=== PATIENT | male | born 1950 | race African-American/Black ===

== ENCOUNTER 2017-10-22 13:53 | Observation (INO) | payer MEDICARE ==
[~2017-10-22] VITALS: Ht 185.4 cm; Wt 103.0 kg
[2017-10-22] VITALS: BP 107/58
[2017-10-22] MEDS ORDERED: SODIUM CHLORIDE 0.9% 1,000 ML IV ONE ×4 (15:04→18:12)
[2017-10-22] MEDS ORDERED: INSULIN REGULAR (HUMULIN R) 300UNITS/3ML SUBCUT ONE (15:15)
[2017-10-22 16:02] LABS: BASOPHILS % 0.6 % (0.0-2.0); EOSINOPHILS % 0.2 % (0.0-5.0); HEMATOCRIT. 49.2 % (42.0-52.0); HEMOGLOBIN. 15.5 g/dL (14.0-18.0); LYMPHOCYTES % 20.7 % (20.0-50.0); MEAN CORPUSCULAR HEMOGLOBIN 28.9 pg (28.0-32.0); MEAN PLATELET VOLUME 10.5 fl (7.4-10.4); MONOCYTES % 6.3 % (2.0-8.0); NEUTROPHILS % 72.2 % (40.0-76.0); PLATELET 184 x1000/uL (130-400); RED BLOOD CELL COUNT 5.34 mill/uL (4.7-6.1); RED CELL DISTRIBUTION WIDTH 14.4 % (11.6-14.6)
[2017-10-22 16:06] LABS: PROTHROMBIN TIME 10.8 sec (9.4-11.6)
[2017-10-22 16:28] LABS: CARBON DIOXIDE 22 mEq/L (21-32); TROPONIN I 0.02 ng/mL (0.00-0.04)
[2017-10-22 16:33] LABS: BETA HYDROXYBUTYRATE 0.3 mMol/L (0.0-0.3)
[2017-10-22 16:47] LABS: CLARITY URINE CLEAR (CLEAR); COLOR URINE YELLOW (YELLOW); KETONES URINE NEGATIVE (NEGATIVE); LEUKOCYTE ESTERASE URINE NEGATIVE (NEGATIVE); NITRITE URINE NEGATIVE (NEGATIVE); OCCULT BLOOD URINE NEGATIVE (NEGATIVE); PROTEIN URINE NEGATIVE (NEGATIVE); UROBILINOGEN URINE 0.2 E.U./dL (0.2-1.0)
[2017-10-22 16:56] LABS: CHLORIDE 107 mEq/L (98-107)
[2017-10-22] MEDS ORDERED: INSULIN REGULAR (HUMULIN R) UD 100 UNITS/ML SYR IV ONE ×2 (17:00→18:15)
[2017-10-22 17:01] LABS: *AMPHETAMINES SCREEN URINE NEGATIVE (NEGATIVE); *BARBITURATES SCREEN URINE NEGATIVE (NEGATIVE); *BENZODIAZEPINES SCREEN URINE NEGATIVE (NEGATIVE); *COCAINE SCREEN URINE NEGATIVE (NEGATIVE); CANNABINOID URINE SCREEN NEGATIVE (NEGATIVE); METHADONE URINE SCREEN NEGATIVE (NEGATIVE); OPIATES URINE SCREEN NEGATIVE (NEGATIVE); PHENCYCLIDINE URINE SCREEN NEGATIVE (NEGATIVE)
[2017-10-22] MEDS ORDERED: INSULIN REGULAR (HUMULIN R) 300UNITS/3ML IV NR (18:36)
[2017-10-22 21:45] VITALS: BP 132/88
[2017-10-22] MEDS ORDERED: LANTUSUD SUBCUT (21:59)
[2017-10-22 22:00] VITALS: BP 132/88
[2017-10-23] MEDS ORDERED: ACETAMINOPHEN 325MG TABLET PO PRN (00:15)
[2017-10-23] MEDS ORDERED: LEVOFLOXACIN 500MG TABLET PO SCH ×2 (00:15→00:45)
[2017-10-23] MEDS ORDERED: ONDANSETRON HCL 4MG/2ML VIAL IV PRN (00:15)
[2017-10-23] MEDS ORDERED: DOCUSATE SODIUM 100MG CAPSULE PO PRN (00:15)
[2017-10-23] MEDS ORDERED: DEXTROSE 50% WATER 50ML SYRINGE IV PRN (00:30)
[2017-10-23] MEDS: SODIUM CHLORIDE 0.45% 1,000 ML IV SCH ×2 (00:32→13:58)
[2017-10-23 04:00] VITALS: BP 118/74
[2017-10-23] MEDS: BLOOD SUGAR DIAGNOSTIC STRIP TEST SCH ×3 (05:49→17:39)
[2017-10-23] MEDS: INSULIN LISPRO 100 UNITS/ML SUBCUT SCH ×3 (05:52→18:01)
[2017-10-23 06:21] LABS: BASOPHILS % 0.3 % (0.0-2.0); EOSINOPHILS % 0.9 % (0.0-5.0); HEMATOCRIT. 38.9 % (42.0-52.0); HEMOGLOBIN. 12.6 g/dL (14.0-18.0); MEAN CORPUSCULAR HEMOGLOBIN 29.2 pg (28.0-32.0); MEAN CORPUSCULAR VOLUME 90.2 fL (80.0-94.0); MONOCYTES % 9.3 % (2.0-8.0); NEUTROPHILS % 48.5 % (40.0-76.0); PLATELET 142 x1000/uL (130-400); RED BLOOD CELL COUNT 4.32 mill/uL (4.7-6.1)
[2017-10-23 07:43] LABS: CLARITY URINE CLEAR (CLEAR); COLOR URINE YELLOW (YELLOW); KETONES URINE NEGATIVE (NEGATIVE); LEUKOCYTE ESTERASE URINE NEGATIVE (NEGATIVE); NITRITE URINE NEGATIVE (NEGATIVE); OCCULT BLOOD URINE NEGATIVE (NEGATIVE); PROTEIN URINE TRACE (NEGATIVE); SPECIFIC GRAVITY URINE 1.023 (1.005-1.030); UROBILINOGEN URINE 0.2 E.U./dL (0.2-1.0)
[2017-10-23 08:45] VITALS: BP 130/84
[2017-10-23] MEDS ORDERED: ENOXAPARIN 40MG/0.4ML SYR SUBCUT SCH (09:00)
[2017-10-23] MEDS ORDERED: INSULIN GLARGINE UD 100 UNITS/ML SYR SUBCUT SCH (10:00)
[2017-10-23 10:57] LABS: CARBON DIOXIDE 22 mEq/L (21-32); CHLORIDE 120 mEq/L (98-107); HDL CHOLESTEROL 38 mg/dL (40-59); LDL CHOLESTEROL 43 mg/dL (5-100); T4 FREE 1.13 ng/dL (0.76-1.46); TROPONIN I 0.03 ng/mL (0.00-0.04)
[2017-10-23 12:46] VITALS: BP 139/86
[2017-10-23 16:15] VITALS: BP 136/90
[2017-10-23 18:33] LABS: HEPATITIS B CORE AB IGM NEGATIVE
[2017-10-23 18:34] LABS: HEPATITIS A AB IGM NEGATIVE (NEGATIVE)
[2017-10-23 19:24] LABS: HEPATITIS B SURFACE ANTIGEN NEGATIVE
[2017-10-23 19:53] VITALS: BP 112/69
[2017-10-23 20:00] VITALS: BP 112/69
[2017-10-23] MEDS ORDERED: LEVOFLOXACIN 250MG TABLET PO SCH (21:00)
== END 2017-10-23 20:50 | disposition home or self-care (01) ==
LOC: ER 16:18 → INTOOBSV 17:06 → 5WST 17:06 → ENRESERV 20:12
PROVIDERS: ADMIT Internal Medicine; ATTEND Internal Medicine
DX: E11.65 Type 2 diabetes mellitus with hyperglycemia (principal); I10 Essential (primary) hypertension; E86.0 Dehydration; R94.5 Abnormal results of liver function studies; R53.1 Weakness; R06.02 Shortness of breath; Z79.899 Other long term (current) drug therapy
CPT/HCPCS: 36415; 74176; 80053; 80061; 80305; 81001; 82010; 82962; 83880; 84439; 84443; 84484; 85025; 85610; 87086; 96361; 96372; 96374; 99285; G0378; J1650; J1815; J7030; 86705; 86709; 86803; 87340

== ENCOUNTER 2019-06-06 06:00 | Emergency (ER) | payer MEDICARE, OTHER ==
[~2019-06-06] VITALS: Ht 182.9 cm; Wt 114.0 kg
[2019-06-06] MEDS ORDERED: ONDANSETRON HCL 4MG/2ML INJ IV STA (06:20)
[2019-06-06] MEDS ORDERED: SODIUM CHLORIDE 0.9% 1,000 ML IV ONE (06:20)
[2019-06-06 07:20] LABS: BASOPHILS % 0.6 % (0.0-2.0); EOSINOPHILS % 0.5 % (0.0-5.0); HEMATOCRIT. 40.2 % (42.0-52.0); HEMOGLOBIN. 13.3 g/dL (14.0-18.0); LYMPHOCYTES % 18.5 % (20.0-50.0); MEAN CORPUSCULAR HEMOGLOBIN 29.1 pg (28.0-32.0); MEAN CORPUSCULAR VOLUME 87.8 fL (80.0-94.0); MONOCYTES % 6.5 % (2.0-8.0); NEUTROPHILS % 73.9 % (40.0-76.0); PLATELET 193 x1000/uL (130-400); RED BLOOD CELL COUNT 4.58 mill/uL (4.7-6.1); RED CELL DISTRIBUTION WIDTH 15.1 % (11.6-14.6)
[2019-06-06 07:27] LABS: CHLORIDE 112 mEq/L (98-107)
[2019-06-06 07:30] LABS: ETHANOL BLOOD < 10 mg/dL
[2019-06-06 09:00] VITALS: BP 135/74
== END 2019-06-06 09:04 | disposition home or self-care (01) ==
LOC: ER 06:22
DX: K52.9 Noninfective gastroenteritis and colitis, unspecified (principal); R11.2 Nausea with vomiting, unspecified; E11.9 Type 2 diabetes mellitus without complications; I10 Essential (primary) hypertension
CPT/HCPCS: 36415; 71045; 74176; 80053; 80320; 83605; 83690; 83880; 84484; 85025; 87040; 93005; 96361; 96374; 99284; J2405; J7030; G0480

== ENCOUNTER 2020-09-07 06:39 | Inpatient (IN) | payer OTHER ==
[~2020-09-07] VITALS: Ht 188 cm; Wt 99.8 kg
[2020-09-07] MEDS ORDERED: VANCOMYCIN 1 G PREMIX 200 ML IV ONE (07:15)
[2020-09-07] MEDS ORDERED: PIPERACILLIN/TAZ 3.375G PREMIX 50 ML IV ONE (07:15)
[2020-09-07 08:26] LABS: BASOPHILS % 0.2 % (0.0-2.0); EOSINOPHILS % 0.3 % (0.0-5.0); HEMATOCRIT. 46.4 % (42.0-52.0); HEMOGLOBIN. 14.6 g/dL (14.0-18.0); LYMPHOCYTES % 8.6 % (20.0-50.0); MEAN CORPUSCULAR HEMOGLOBIN 28.9 pg (28.0-32.0); MEAN CORPUSCULAR VOLUME 91.9 fL (80.0-94.0); MONOCYTES % 4.3 % (2.0-8.0); NEUTROPHILS % 86.6 % (40.0-76.0); PLATELET 177 x1000/uL (130-400); RED BLOOD CELL COUNT 5.05 mill/uL (4.7-6.1); RED CELL DISTRIBUTION WIDTH 14.4 % (11.6-14.6)
[2020-09-07 08:28] LABS: CHLORIDE 95 mEq/L (98-107)
[2020-09-07 09:12] LABS: INR 1.1; PROTHROMBIN TIME 11.2 sec (9.6-11.0)
[2020-09-07 10:10] LABS: BG BASE EXCESS -8.7 mmol/L (-2.0-2.0); BG CARBOXYHEMOGLOBIN 0.2 % (0.5-1.5); BG DEOXYHEMOGLOBIN 4.6 % (0.0-5.0); BG FRACTION INSPIRED OXYGEN 32; BG HCO3 ACT 16.1 mmol/L (22.0-26.0); BG METHEMOGLOBIN 0.5 % (0.0-1.5); BG OXYGEN SATURATION 95.4 % (92.0-98.5); BG OXYHEMOGLOBIN 94.7 % (94.0-97.0); BG PCO2 31.8 mmHg (35.0-45.0); BG PH 7.322 (7.350-7.450); BG PO2 87.5 mmHg (75.0-100.0); BG SAMPLE SITE RIGHT BRACHIAL; BG TOTAL HEMOGLOBIN 14.4 g/dL (12.0-18.0); BG VENT MODE NASAL CANNULA
[2020-09-07 10:44] LABS: CLARITY URINE CLOUDY (CLEAR); COLOR URINE YELLOW (YELLOW); KETONES URINE NEGATIVE (NEGATIVE); LEUKOCYTE ESTERASE URINE NEGATIVE (NEGATIVE); NITRITE URINE NEGATIVE (NEGATIVE); OCCULT BLOOD URINE 2+ (NEGATIVE); PROTEIN URINE 1+ (NEGATIVE); SPECIFIC GRAVITY URINE 1.026 (1.005-1.030); UROBILINOGEN URINE 0.2 E.U./dL (0.2-1.0)
[2020-09-07] MEDS ORDERED: INSULIN REGULAR (HUMULIN R) 300UNITS/3ML VIAL IV ONE (11:30)
[2020-09-07] MEDS ORDERED: CALCIUM GLUCONATE 1GM PREMIX 50 ML IV ONE (11:30)
[2020-09-07] MEDS ORDERED: SODIUM CHLORIDE 0.9% 1,000 ML IV ONE ×2 (11:30→15:30)
[2020-09-07] MEDS ORDERED: INSULIN REGULAR (DRIP) 100 UNITS in SODIUM CHLORIDE 0.9% 99 ML IV ONE ×2 (11:45→12:00)
[2020-09-07] MEDS ORDERED: DIPHENHYDRAMINE 50MG/ML VIAL IV PRN (14:30)
[2020-09-07] MEDS ORDERED: ACETAMINOPHEN 650MG SUPP PR PRN (14:30)
[2020-09-07] MEDS ORDERED: ONDANSETRON HCL 4MG/2ML INJ IV PRN (14:30)
[2020-09-07] MEDS ORDERED: NA PHOS,M-B/NA PHOS,DI-BA ENEMA 118ML PR PRN (14:30)
[2020-09-07] MEDS ORDERED: INSULIN REGULAR (DRIP) 100 UNITS in SODIUM CHLORIDE 0.9% 99 ML IV PRN (14:30)
[2020-09-07] MEDS ORDERED: IPRATROPIUM/ALBUTEROL 0.5-3(2.5)MG/3ML NEB NEB PRN (14:30)
[2020-09-07] MEDS ORDERED: MORPHINE SULFATE 2 MG/ML CPJ (NOT FOR IM USE) IV PRN (14:30)
[2020-09-07] MEDS ORDERED: GUAIFENESIN 200MG/10ML SUGAR FREE UDC PO PRN (14:30)
[2020-09-07] MEDS ORDERED: LORAZEPAM 0.5MG TABLET PO PRN (14:30)
[2020-09-07] MEDS ORDERED: CLONIDINE 0.1MG TABLET PO PRN (14:30)
[2020-09-07] MEDS ORDERED: DEXTROSE 50% WATER 50ML SYRINGE IV PRN ×3 (14:30→15:30)
[2020-09-07] MEDS ORDERED: HYDROCODONE/ACETAMINOPHEN 5/325MG TABLET PO PRN (14:30)
[2020-09-07] MEDS ORDERED: MAGNESIUM/ALUMINUM HYDROXIDE/SIMETHICONE 30ML UDC PO PRN (14:30)
[2020-09-07] MEDS ORDERED: ACETAMINOPHEN 325MG TABLET PO PRN (14:30)
[2020-09-07] MEDS ORDERED: DOCUSATE SODIUM 100MG CAPSULE PO PRN (14:30)
[2020-09-07 15:12] LABS: CHLORIDE 102 mEq/L (98-107)
[2020-09-07] MEDS: FAMOTIDINE 20MG/2ML VIAL IV SCH (15:30)
[2020-09-07] MEDS: ENOXAPARIN 30MG/0.3ML SYR SUBCUT SCH (16:00)
[2020-09-07] MEDS ORDERED: VANCOMYCIN 1 G PREMIX 200 ML IV NR (16:00)
[2020-09-07] MEDS ORDERED: INSULIN REGULAR (DRIP) 100 UNITS in SODIUM CHLORIDE 0.9% 100 ML IV SCH (16:00)
[2020-09-07] MEDS: BLOOD SUGAR DIAGNOSTIC STRIP TEST SCH ×4 (20:50→23:00)
[2020-09-08] MEDS: PIPERACILLIN/TAZOBACTAM 2.25 G in DEXTROSE 5% WATER 50 ML IV SCH ×4 (00:12→19:45)
[2020-09-08] MEDS: SODIUM CHLORIDE 0.9% 1,000 ML IV SCH ×2 (00:17→05:40)
[2020-09-08] MEDS: BLOOD SUGAR DIAGNOSTIC STRIP TEST SCH ×24 (01:00→23:00)
[2020-09-08 05:53] LABS: BASOPHILS % 0.5 % (0.0-2.0); EOSINOPHILS % 0.2 % (0.0-5.0); HEMATOCRIT. 42.8 % (42.0-52.0); LYMPHOCYTES % 21.1 % (20.0-50.0); MEAN CORPUSCULAR HEMOGLOBIN 29.2 pg (28.0-32.0); MEAN CORPUSCULAR VOLUME 89.1 fL (80.0-94.0); MEAN PLATELET VOLUME 9.3 fl (7.4-10.4); MONOCYTES % 8.7 % (2.0-8.0); NEUTROPHILS % 69.5 % (40.0-76.0); PLATELET 167 x1000/uL (130-400); RED BLOOD CELL COUNT 4.81 mill/uL (4.7-6.1); RED CELL DISTRIBUTION WIDTH 13.8 % (11.6-14.6)
[2020-09-08 06:00] LABS: CHLORIDE 112 mEq/L (98-107)
[2020-09-08 06:08] LABS: LDL CHOLESTEROL 64 mg/dL (5-100)
[2020-09-08 06:09] LABS: CREATINE KINASE 739 IU/L (39-308)
[2020-09-08 06:10] LABS: CREATINE KINASE MB FRACTION 7.7 ng/mL (0.5-3.6); HDL CHOLESTEROL 59 mg/dL (40-59)
[2020-09-08 06:21] LABS: T4 FREE 1.25 ng/dL (0.76-1.46)
[2020-09-08] MEDS: INSULIN REGULAR (DRIP) 100 UNITS in SODIUM CHLORIDE 0.9% 100 ML IV SCH ×2 (08:18→22:25)
[2020-09-08] MEDS ORDERED: VANCOMYCIN 1 G PREMIX 200 ML IV SCH (09:00)
[2020-09-08] MEDS: FAMOTIDINE 20MG/2ML VIAL IV SCH (10:09)
[2020-09-08] MEDS: DEXT 5%/0.45% NACL 1000ML 1,000 ML IV SCH (14:05)
[2020-09-08] MEDS: ENOXAPARIN 30MG/0.3ML SYR SUBCUT SCH (19:22)
[2020-09-08 21:00] VITALS: BP 108/69
[2020-09-08 21:06] VITALS: BP 131/80
[2020-09-08 22:00] VITALS: BP 92/50
[2020-09-08 23:00] VITALS: BP 114/81
[2020-09-09] VITALS (22 sets, daily range): BP systolic 101–147; BP diastolic 24–101
[2020-09-09] MEDS: PIPERACILLIN/TAZOBACTAM 2.25 G in DEXTROSE 5% WATER 50 ML IV SCH ×4 (00:53→18:37)
[2020-09-09] MEDS: BLOOD SUGAR DIAGNOSTIC STRIP TEST SCH ×15 (00:53→23:00)
[2020-09-09] MEDS: DEXT 5%/0.45% NACL 1000ML 1,000 ML IV SCH ×2 (01:36→09:07)
[2020-09-09 07:01] LABS: BASOPHILS % 0.5 % (0.0-2.0); EOSINOPHILS % 0.6 % (0.0-5.0); HEMATOCRIT. 41.5 % (42.0-52.0); HEMOGLOBIN. 13.5 g/dL (14.0-18.0); LYMPHOCYTES % 30.3 % (20.0-50.0); MEAN CORPUSCULAR HEMOGLOBIN 29.4 pg (28.0-32.0); MEAN CORPUSCULAR VOLUME 90.4 fL (80.0-94.0); MONOCYTES % 9.6 % (2.0-8.0); RED BLOOD CELL COUNT 4.59 mill/uL (4.7-6.1); RED CELL DISTRIBUTION WIDTH 13.9 % (11.6-14.6)
[2020-09-09] MEDS: FAMOTIDINE 20MG/2ML VIAL IV SCH (09:06)
[2020-09-09 09:48] LABS: CHLORIDE 112 mEq/L (98-107)
[2020-09-09 10:23] LABS: PLATELET 110 x1000/uL (130-400)
[2020-09-09] MEDS: INSULIN LISPRO 100 UNITS/ML SUBCUT SCH ×4 (11:00→23:31)
[2020-09-09] MEDS: SODIUM CHLORIDE 0.45% 1,000 ML IV SCH (11:24)
[2020-09-09] MEDS ORDERED: VANCOMYCIN 1 G PREMIX 200 ML IV SCH (12:00)
[2020-09-09] MEDS ORDERED: INSULIN GLARGINE UD 100 UNITS/ML SYR SUBCUT NR (12:30)
[2020-09-09] MEDS: ENOXAPARIN 30MG/0.3ML SYR SUBCUT SCH (18:38)
[2020-09-09] MEDS ORDERED: INSULIN GLARGINE UD 100 UNITS/ML SYR SUBCUT SCH (22:00)
[2020-09-09] MEDS: INSULIN GLARGINE UD 100 UNITS/ML SYR SUBCUT SCH (23:32)
[2020-09-10] VITALS: BP 134/77
[2020-09-10] MEDS: PIPERACILLIN/TAZOBACTAM 2.25 G in DEXTROSE 5% WATER 50 ML IV SCH ×4 (01:53→18:46)
[2020-09-10] MEDS: SODIUM CHLORIDE 0.45% 1,000 ML IV SCH ×2 (01:54→14:04)
[2020-09-10] MEDS: INSULIN LISPRO 100 UNITS/ML SUBCUT SCH ×6 (03:00→20:32)
[2020-09-10] MEDS: BLOOD SUGAR DIAGNOSTIC STRIP TEST SCH ×6 (03:00→20:32)
[2020-09-10 04:00] VITALS: BP 129/69
[2020-09-10 07:19] LABS: HEMATOCRIT 42.7 % (42.0-52.0); HEMOGLOBIN 14.1 g/dL (14.0-18.0); MEAN CORPUSCULAR HEMOGLOBIN 29.6 pg (28.0-32.0); MEAN CORPUSCULAR VOLUME 89.5 fL (80.0-94.0); PLATELET 162 x1000/uL (130-400); RED BLOOD CELL COUNT 4.78 mill/uL (4.7-6.1); RED CELL DISTRIBUTION WIDTH 13.6 % (11.6-14.6)
[2020-09-10] MEDS: FAMOTIDINE 20MG/2ML VIAL IV SCH (08:18)
[2020-09-10] MEDS: INSULIN GLARGINE UD 100 UNITS/ML SYR SUBCUT SCH (10:35)
[2020-09-10 12:00] VITALS: BP 115/60
[2020-09-10 15:28] LABS: CLARITY URINE CLOUDY (CLEAR); COLOR URINE YELLOW (YELLOW); KETONES URINE NEGATIVE (NEGATIVE); LEUKOCYTE ESTERASE URINE NEGATIVE (NEGATIVE); NITRITE URINE NEGATIVE (NEGATIVE); OCCULT BLOOD URINE 1+ (NEGATIVE); PROTEIN URINE NEGATIVE (NEGATIVE); SPECIFIC GRAVITY URINE 1.025 (1.005-1.030); UROBILINOGEN URINE 0.2 E.U./dL (0.2-1.0)
[2020-09-10] MEDS: ENOXAPARIN 30MG/0.3ML SYR SUBCUT SCH (16:23)
[2020-09-10 17:32] VITALS: BP 115/60
[2020-09-10] MEDS ORDERED: INSULIN GLARGINE UD 100 UNITS/ML SYR SUBCUT NR (18:00)
[2020-09-10 20:00] VITALS: BP 155/86
== END 2020-09-10 23:55 | disposition home health service (06) | DRG 871 ==
LOC: ER 06:39 → EDBEDREQ 11:39 → EDBEDREQTM 11:39 → EDBEDREQSVC 11:39 → MICUSO 13:25 → EDBEDREQ 13:29 → SUPCPDRO 14:25 → CVICU 09-08 21:01 → 6WST 09-09 16:25
PROVIDERS: ADMIT Internal Medicine; ATTEND Internal Medicine
DX: A41.9 Sepsis, unspecified organism (principal); E11.10 Type 2 diabetes mellitus with ketoacidosis without coma; J18.9 Pneumonia, unspecified organism; K85.90 Acute pancreatitis without necrosis or infection, unspecified; N17.9 Acute kidney failure, unspecified; N39.0 Urinary tract infection, site not specified; E87.5 Hyperkalemia; E86.0 Dehydration; K76.0 Fatty (change of) liver, not elsewhere classified; N18.30 Chronic kidney disease, stage 3 unspecified; E11.22 Type 2 diabetes mellitus with diabetic chronic kidney disease; I12.9 Hypertensive chronic kidney disease with stage 1 through stage 4 chronic kidney disease, or unspecified chronic kidney disease; I95.9 Hypotension, unspecified; Z20.828 Contact with and (suspected) exposure to other viral communicable diseases; R74.01 Elevation of levels of liver transaminase levels; G90.8 Other disorders of autonomic nervous system; Z79.4 Long term (current) use of insulin
CPT/HCPCS: 36415; 36600; 71045; 74176; 76700; 80048; 80053; 80061; 80202; 81003; 82375; 82550; 82553; 82805; 82962; 83036; 83605; 83735; 84100; 84145; 84439; 84443; 84484; 85025; 85027; 87635; 87804; 93005; 97162; 99291; J0610; J1650; J1815; J2543; J3370; J3490; J7050; J7060

== ENCOUNTER 2020-10-31 12:36 | Inpatient (IN) | payer MEDICARE, OTHER ==
[~2020-10-31] VITALS: Ht 175.3 cm; Wt 90.7 kg
[2020-10-31 13:22] LABS: BASOPHILS % 0.9 % (0.0-2.0); EOSINOPHILS % 0.2 % (0.0-5.0); HEMATOCRIT. 46.2 % (42.0-52.0); HEMOGLOBIN. 14.9 g/dL (14.0-18.0); LYMPHOCYTES % 20.3 % (20.0-50.0); MEAN CORPUSCULAR HEMOGLOBIN 29.7 pg (28.0-32.0); MEAN CORPUSCULAR VOLUME 92.5 fL (80.0-94.0); MEAN PLATELET VOLUME 9.6 fl (7.4-10.4); MONOCYTES % 7.8 % (2.0-8.0); NEUTROPHILS % 70.8 % (40.0-76.0); PLATELET 239 x1000/uL (130-400)
[2020-10-31 13:31] LABS: CHLORIDE 100 mEq/L (98-107)
[2020-10-31 13:33] LABS: PROTHROMBIN TIME 10.8 sec (9.6-11.0)
[2020-10-31] MEDS ORDERED: INSULIN REGULAR (HUMULIN R) 300UNITS/3ML VIAL IV ONE ×2 (14:45→21:45)
[2020-10-31] MEDS ORDERED: SODIUM CHLORIDE 0.9% 1,000 ML IV ONE ×2 (14:45→21:45)
[2020-10-31] MEDS ORDERED: DEXTROSE 50% WATER 50ML SYRINGE IV PRN (23:00)
[2020-10-31] MEDS: INSULIN LISPRO (HIGH DOSE) 100 UNITS/ML SUBCUT SCH (23:00)
[2020-10-31] MEDS ORDERED: INSULIN LISPRO 100 UNITS/ML SUBCUT NR (23:00)
[2020-10-31] MEDS: BLOOD SUGAR DIAGNOSTIC STRIP TEST SCH (23:27)
[2020-11-01] MEDS ORDERED: CLONIDINE 0.2MG TABLET PO PRN (00:30)
[2020-11-01] MEDS: INSULIN LISPRO (HIGH DOSE) 100 UNITS/ML SUBCUT SCH ×2 (02:05→07:12)
[2020-11-01] MEDS: BLOOD SUGAR DIAGNOSTIC STRIP TEST SCH ×4 (06:47→20:00)
[2020-11-01] MEDS ORDERED: GUAIFENESIN 200MG/10ML SUGAR FREE UDC PO PRN (10:30)
[2020-11-01] MEDS ORDERED: SODIUM CHLORIDE 0.9% 1,000 ML IV SCH (10:30)
[2020-11-01] MEDS ORDERED: DIPHENHYDRAMINE 50MG/ML VIAL IV PRN (10:30)
[2020-11-01] MEDS ORDERED: ONDANSETRON HCL 4MG/2ML INJ IV PRN (10:30)
[2020-11-01] MEDS ORDERED: MAGNESIUM/ALUMINUM HYDROXIDE/SIMETHICONE 30ML UDC PO PRN (10:30)
[2020-11-01] MEDS ORDERED: NA PHOS,M-B/NA PHOS,DI-BA ENEMA 118ML PR PRN (10:30)
[2020-11-01] MEDS ORDERED: ACETAMINOPHEN 325MG TABLET PO PRN (10:30)
[2020-11-01] MEDS ORDERED: DEXTROSE 50% WATER 50ML SYRINGE IV PRN (10:30)
[2020-11-01] MEDS ORDERED: ACETAMINOPHEN 650MG SUPP PR PRN (10:30)
[2020-11-01] MEDS ORDERED: IPRATROPIUM/ALBUTEROL 0.5-3(2.5)MG/3ML NEB NEB PRN (10:30)
[2020-11-01] MEDS ORDERED: INSULIN GLARGINE UD 100 UNITS/ML SYR SUBCUT NR (12:00)
[2020-11-01] MEDS ORDERED: ENOXAPARIN 40MG/0.4ML SYR SUBCUT SCH (12:00)
[2020-11-01 12:41] LABS: BASOPHILS % 0.5 % (0.0-2.0); EOSINOPHILS % 0.8 % (0.0-5.0); HEMATOCRIT. 46.8 % (42.0-52.0); HEMOGLOBIN. 15.2 g/dL (14.0-18.0); LYMPHOCYTES % 36.1 % (20.0-50.0); MEAN CORPUSCULAR HEMOGLOBIN 29.3 pg (28.0-32.0); MEAN CORPUSCULAR VOLUME 90.1 fL (80.0-94.0); MEAN PLATELET VOLUME 9.1 fl (7.4-10.4); MONOCYTES % 7.4 % (2.0-8.0); NEUTROPHILS % 55.2 % (40.0-76.0); PLATELET 243 x1000/uL (130-400); RED BLOOD CELL COUNT 5.19 mill/uL (4.7-6.1); RED CELL DISTRIBUTION WIDTH 15.9 % (11.6-14.6)
[2020-11-01 12:44] LABS: CHLORIDE 108 mEq/L (98-107)
[2020-11-01 12:49] LABS: C REACTIVE PROTEIN QUANT 0.5 mg/L (0.0-3.0)
[2020-11-01 12:52] LABS: CREATINE KINASE 199 IU/L (39-308)
[2020-11-01 12:55] LABS: CREATINE KINASE MB FRACTION 1.1 ng/mL (0.5-3.6)
[2020-11-01] MEDS: CEFTRIAXONE 1,000 MG in DEXTROSE 5% WATER 50 ML IV SCH (13:18)
[2020-11-01] MEDS: INSULIN LISPRO 100 UNITS/ML SUBCUT SCH ×3 (13:21→21:17)
[2020-11-01 16:00] VITALS: BP 159/92
[2020-11-01] MEDS: SODIUM CHLORIDE 0.45% 1,000 ML IV SCH (16:37)
[2020-11-01] MEDS ORDERED: POTASSIUM CHLORIDE 20MEQ TABLET SR PO NR (17:00)
[2020-11-01 17:43] VITALS: BP 159/92
[2020-11-01 19:42] LABS: CLARITY URINE CLEAR (CLEAR); COLOR URINE YELLOW (YELLOW); KETONES URINE TRACE (NEGATIVE); LEUKOCYTE ESTERASE URINE NEGATIVE (NEGATIVE); NITRITE URINE NEGATIVE (NEGATIVE); OCCULT BLOOD URINE NEGATIVE (NEGATIVE); PROTEIN URINE 1+ (NEGATIVE); SPECIFIC GRAVITY URINE 1.028 (1.005-1.030); UROBILINOGEN URINE 0.2 E.U./dL (0.2-1.0)
[2020-11-01 20:00] VITALS: BP 137/96
[2020-11-01 20:27] LABS: *AMPHETAMINES SCREEN URINE NEGATIVE (NEGATIVE); *BARBITURATES SCREEN URINE NEGATIVE (NEGATIVE); *BENZODIAZEPINES SCREEN URINE NEGATIVE (NEGATIVE); *COCAINE SCREEN URINE NEGATIVE (NEGATIVE)
[2020-11-01 20:28] LABS: METHADONE URINE SCREEN NEGATIVE (NEGATIVE); OPIATES URINE SCREEN NEGATIVE (NEGATIVE)
[2020-11-01 20:29] LABS: CANNABINOID URINE SCREEN NEGATIVE (NEGATIVE); PHENCYCLIDINE URINE SCREEN NEGATIVE (NEGATIVE)
[2020-11-01] MEDS: FAMOTIDINE 20MG TABLET PO SCH (21:19)
[2020-11-01 22:00] VITALS: BP 155/86
[2020-11-01] MEDS ORDERED: INSULIN GLARGINE UD 100 UNITS/ML SYR SUBCUT SCH (22:00)
[2020-11-02] MEDS: INSULIN LISPRO 100 UNITS/ML SUBCUT SCH ×6 (00:13→21:40)
[2020-11-02 00:41] LABS: CREATINE KINASE 197 IU/L (39-308); CREATINE KINASE MB FRACTION < 1.0 ng/mL (0.5-3.6)
[2020-11-02] MEDS: SODIUM CHLORIDE 0.45% 1,000 ML IV SCH ×2 (03:26→12:35)
[2020-11-02] MEDS: BLOOD SUGAR DIAGNOSTIC STRIP TEST SCH ×6 (04:34→21:00)
[2020-11-02 08:00] VITALS: BP 148/101
[2020-11-02] MEDS: ENOXAPARIN 40MG/0.4ML SYR SUBCUT SCH (08:59)
[2020-11-02 09:32] LABS: BASOPHILS % 0.6 % (0.0-2.0); EOSINOPHILS % 0.9 % (0.0-5.0); HEMATOCRIT. 45.1 % (42.0-52.0); HEMOGLOBIN. 14.5 g/dL (14.0-18.0); LYMPHOCYTES % 45.9 % (20.0-50.0); MEAN CORPUSCULAR HEMOGLOBIN 28.9 pg (28.0-32.0); MEAN CORPUSCULAR VOLUME 89.7 fL (80.0-94.0); MEAN PLATELET VOLUME 9.3 fl (7.4-10.4); NEUTROPHILS % 44.6 % (40.0-76.0); PLATELET 187 x1000/uL (130-400); RED BLOOD CELL COUNT 5.02 mill/uL (4.7-6.1); RED CELL DISTRIBUTION WIDTH 15.8 % (11.6-14.6)
[2020-11-02 09:39] LABS: CHLORIDE 112 mEq/L (98-107)
[2020-11-02 09:49] LABS: LDL CHOLESTEROL 99 mg/dL (5-100)
[2020-11-02 09:51] LABS: HDL CHOLESTEROL 54 mg/dL (40-59); T4 FREE 1.28 ng/dL (0.76-1.46)
[2020-11-02 10:04] LABS: VITAMIN B12 SERUM 1514 pg/mL (211-911)
[2020-11-02 12:00] VITALS: BP 148/98
[2020-11-02] MEDS: CEFTRIAXONE 1,000 MG in DEXTROSE 5% WATER 50 ML IV SCH (12:34)
[2020-11-02] MEDS ORDERED: INSULIN GLARGINE UD 100 UNITS/ML SYR SUBCUT NR (14:00)
[2020-11-02 20:00] VITALS: BP 130/92
[2020-11-02] MEDS: FAMOTIDINE 20MG TABLET PO SCH (21:37)
[2020-11-02] MEDS: CLONIDINE 0.1MG TABLET PO PRN (21:38)
[2020-11-02] MEDS: INSULIN GLARGINE UD 100 UNITS/ML SYR SUBCUT SCH (21:41)
[2020-11-03] VITALS: BP 128/89
[2020-11-03 04:00] VITALS: BP 138/90
[2020-11-03] MEDS: BLOOD SUGAR DIAGNOSTIC STRIP TEST SCH ×4 (06:45→20:48)
[2020-11-03 08:00] VITALS: BP 121/77
[2020-11-03] MEDS: ENOXAPARIN 40MG/0.4ML SYR SUBCUT SCH (08:08)
[2020-11-03] MEDS: INSULIN LISPRO 100 UNITS/ML SUBCUT SCH ×4 (08:11→20:48)
[2020-11-03] MEDS: SODIUM CHLORIDE 0.45% 1,000 ML IV SCH (08:20)
[2020-11-03] MEDS: INSULIN GLARGINE UD 100 UNITS/ML SYR SUBCUT SCH ×2 (10:31→22:08)
[2020-11-03 11:27] LABS: BASOPHILS % 0.8 % (0.0-2.0); EOSINOPHILS % 1.1 % (0.0-5.0); HEMATOCRIT. 39.8 % (42.0-52.0); LYMPHOCYTES % 48.9 % (20.0-50.0); MEAN CORPUSCULAR HEMOGLOBIN 29.5 pg (28.0-32.0); MEAN CORPUSCULAR VOLUME 90.5 fL (80.0-94.0); MEAN PLATELET VOLUME 9.6 fl (7.4-10.4); MONOCYTES % 9.2 % (2.0-8.0); PLATELET 170 x1000/uL (130-400); RED CELL DISTRIBUTION WIDTH 15.5 % (11.6-14.6)
[2020-11-03 12:00] VITALS: BP 118/78
[2020-11-03] MEDS: CEFTRIAXONE 1,000 MG in DEXTROSE 5% WATER 50 ML IV SCH (12:30)
[2020-11-03 16:00] VITALS: BP 138/94
[2020-11-03 20:00] VITALS: BP 136/77
[2020-11-03] MEDS: FAMOTIDINE 20MG TABLET PO SCH (20:47)
[2020-11-03] MEDS ORDERED: INSULIN GLARGINE UD 100 UNITS/ML SYR SUBCUT SCH (22:00)
[2020-11-04] VITALS: BP 144/95
[2020-11-04 04:00] VITALS: BP 127/88
[2020-11-04] MEDS: BLOOD SUGAR DIAGNOSTIC STRIP TEST SCH ×4 (06:25→21:00)
[2020-11-04] MEDS: INSULIN LISPRO 100 UNITS/ML SUBCUT SCH ×4 (06:26→22:11)
[2020-11-04 07:39] LABS: BASOPHILS % 0.9 % (0.0-2.0); EOSINOPHILS % 1.7 % (0.0-5.0); HEMATOCRIT. 40.4 % (42.0-52.0); HEMOGLOBIN. 13.3 g/dL (14.0-18.0); LYMPHOCYTES % 54.8 % (20.0-50.0); MEAN CORPUSCULAR HEMOGLOBIN 29.6 pg (28.0-32.0); MEAN CORPUSCULAR VOLUME 89.8 fL (80.0-94.0); MEAN PLATELET VOLUME 9.2 fl (7.4-10.4); MONOCYTES % 11.9 % (2.0-8.0); NEUTROPHILS % 30.7 % (40.0-76.0); PLATELET 147 x1000/uL (130-400); RED CELL DISTRIBUTION WIDTH 15.7 % (11.6-14.6)
[2020-11-04 08:00] VITALS: BP 143/93
[2020-11-04 08:26] LABS: CHLORIDE 112 mEq/L (98-107)
[2020-11-04] MEDS: ENOXAPARIN 40MG/0.4ML SYR SUBCUT SCH (09:05)
[2020-11-04] MEDS: CLONIDINE 0.1MG TABLET PO PRN (09:05)
[2020-11-04] MEDS: INSULIN GLARGINE UD 100 UNITS/ML SYR SUBCUT SCH ×2 (09:09→22:10)
[2020-11-04 12:00] VITALS: BP 134/83
[2020-11-04] MEDS: CEFTRIAXONE 1,000 MG in DEXTROSE 5% WATER 50 ML IV SCH (12:20)
[2020-11-04 16:00] VITALS: BP 135/86
[2020-11-04 20:00] VITALS: BP_SYST 121; BP_SYST 125; BP_DIAS 76; BP_DIAS 86
[2020-11-04] MEDS: FAMOTIDINE 20MG TABLET PO SCH (22:07)
[2020-11-05] VITALS: BP 125/80
[2020-11-05] MEDS: BLOOD SUGAR DIAGNOSTIC STRIP TEST SCH ×4 (06:32→21:47)
[2020-11-05] MEDS: INSULIN LISPRO 100 UNITS/ML SUBCUT SCH ×4 (06:46→21:48)
[2020-11-05 08:00] VITALS: BP 140/98
[2020-11-05] MEDS: ENOXAPARIN 40MG/0.4ML SYR SUBCUT SCH (09:03)
[2020-11-05] MEDS: CLONIDINE 0.1MG TABLET PO PRN (09:03)
[2020-11-05] MEDS: INSULIN GLARGINE UD 100 UNITS/ML SYR SUBCUT SCH ×2 (09:09→21:48)
[2020-11-05 12:00] VITALS: BP 143/86
[2020-11-05] MEDS: CEFTRIAXONE 1,000 MG in DEXTROSE 5% WATER 50 ML IV SCH (12:10)
[2020-11-05 16:00] VITALS: BP 153/88
[2020-11-05 20:00] VITALS: BP 138/86
[2020-11-05] MEDS: FAMOTIDINE 20MG TABLET PO SCH (21:46)
[2020-11-06] VITALS: BP 141/96
[2020-11-06 04:00] VITALS: BP 150/93
[2020-11-06 05:09] LABS: CHLORIDE 111 mEq/L (98-107)
[2020-11-06 05:56] LABS: BASOPHILS % 0.3 % (0.0-2.0); EOSINOPHILS % 2.6 % (0.0-5.0); HEMATOCRIT. 42.3 % (42.0-52.0); HEMOGLOBIN. 13.7 g/dL (14.0-18.0); LYMPHOCYTES % 57.5 % (20.0-50.0); MEAN CORPUSCULAR HEMOGLOBIN 29.1 pg (28.0-32.0); MEAN CORPUSCULAR VOLUME 89.8 fL (80.0-94.0); MEAN PLATELET VOLUME 9.8 fl (7.4-10.4); MONOCYTES % 10.1 % (2.0-8.0); NEUTROPHILS % 29.5 % (40.0-76.0); PLATELET 161 x1000/uL (130-400); RED BLOOD CELL COUNT 4.71 mill/uL (4.7-6.1); RED CELL DISTRIBUTION WIDTH 15.6 % (11.6-14.6)
[2020-11-06] MEDS: BLOOD SUGAR DIAGNOSTIC STRIP TEST SCH ×4 (06:16→21:14)
[2020-11-06] MEDS: INSULIN LISPRO 100 UNITS/ML SUBCUT SCH ×4 (06:16→21:14)
[2020-11-06 08:00] VITALS: BP 145/89
[2020-11-06] MEDS: ENOXAPARIN 40MG/0.4ML SYR SUBCUT SCH (09:06)
[2020-11-06] MEDS: INSULIN GLARGINE UD 100 UNITS/ML SYR SUBCUT SCH ×2 (09:07→21:14)
[2020-11-06] MEDS: CEFTRIAXONE 1,000 MG in DEXTROSE 5% WATER 50 ML IV SCH (11:38)
[2020-11-06 12:00] VITALS: BP 143/86
[2020-11-06 16:00] VITALS: BP 137/91
[2020-11-06 20:00] VITALS: BP 136/92
[2020-11-06] MEDS: FAMOTIDINE 20MG TABLET PO SCH (21:12)
[2020-11-07] VITALS: BP 154/97
[2020-11-07 04:00] VITALS: BP 148/91
[2020-11-07] MEDS: BLOOD SUGAR DIAGNOSTIC STRIP TEST SCH ×4 (06:08→21:50)
[2020-11-07] MEDS: INSULIN LISPRO 100 UNITS/ML SUBCUT SCH ×4 (06:09→21:54)
[2020-11-07 08:00] VITALS: BP 131/87
[2020-11-07] MEDS: ENOXAPARIN 40MG/0.4ML SYR SUBCUT SCH (10:00)
[2020-11-07] MEDS: INSULIN GLARGINE UD 100 UNITS/ML SYR SUBCUT SCH ×2 (10:01→21:54)
[2020-11-07 12:00] VITALS: BP_SYST 134; BP_SYST 143; BP_DIAS 95
[2020-11-07] MEDS ORDERED: AMLO5TAB4 MT (13:35)
[2020-11-07] MEDS ORDERED: INSU100I28 SQ (13:35)
[2020-11-07] MEDS ORDERED: DILTIAZEM HCL 5MG/ML 5ML VIAL IV NR (14:45)
[2020-11-07 16:00] VITALS: BP 139/81
[2020-11-07 18:51] LABS: BASOPHILS % 0.6 % (0.0-2.0); EOSINOPHILS % 1.5 % (0.0-5.0); HEMATOCRIT. 42.2 % (42.0-52.0); HEMOGLOBIN. 13.5 g/dL (14.0-18.0); MEAN CORPUSCULAR HEMOGLOBIN 28.7 pg (28.0-32.0); MEAN CORPUSCULAR VOLUME 89.7 fL (80.0-94.0); MEAN PLATELET VOLUME 9.2 fl (7.4-10.4); MONOCYTES % 11.2 % (2.0-8.0); NEUTROPHILS % 34.7 % (40.0-76.0); PLATELET 163 x1000/uL (130-400); RED BLOOD CELL COUNT 4.71 mill/uL (4.7-6.1); RED CELL DISTRIBUTION WIDTH 15.4 % (11.6-14.6)
[2020-11-07 19:03] LABS: CHLORIDE 106 mEq/L (98-107)
[2020-11-07 19:11] LABS: CREATINE KINASE 61 IU/L (39-308)
[2020-11-07 19:13] LABS: CREATINE KINASE MB FRACTION < 1.0 ng/mL (0.5-3.6)
[2020-11-07 20:00] VITALS: BP 146/85
[2020-11-07] MEDS: FAMOTIDINE 20MG TABLET PO SCH (21:51)
[2020-11-07] MEDS: DILTIAZEM HCL 30MG TABLET PO SCH (21:52)
[2020-11-08] VITALS (7 sets, daily range): BP systolic 111–144; BP diastolic 66–96
[2020-11-08] MEDS: CLONIDINE 0.1MG TABLET PO PRN (01:49)
[2020-11-08] MEDS: INSULIN LISPRO 100 UNITS/ML SUBCUT SCH ×2 (06:32→12:48)
[2020-11-08] MEDS: BLOOD SUGAR DIAGNOSTIC STRIP TEST SCH ×2 (06:32→12:19)
[2020-11-08] MEDS: DILTIAZEM HCL 30MG TABLET PO SCH ×2 (06:48→15:09)
[2020-11-08] MEDS: ENOXAPARIN 40MG/0.4ML SYR SUBCUT SCH (08:18)
[2020-11-08] MEDS: INSULIN GLARGINE UD 100 UNITS/ML SYR SUBCUT SCH (12:47)
[2020-11-08] MEDS ORDERED: DILT30TA38 MT (12:50)
[2020-11-09 04:00] VITALS: BP 137/88
== END 2020-11-08 16:25 | disposition home or self-care (01) | DRG 73 ==
LOC: ER 12:36 → MICUSO 18:43 → 5WST 11-01 09:14
PROVIDERS: ADMIT Internal Medicine; ATTEND Internal Medicine
DX: G90.8 Other disorders of autonomic nervous system (principal); E11.10 Type 2 diabetes mellitus with ketoacidosis without coma; G92 Toxic encephalopathy; E87.2 Acidosis; G91.2 (Idiopathic) normal pressure hydrocephalus; R27.0 Ataxia, unspecified; E11.22 Type 2 diabetes mellitus with diabetic chronic kidney disease; G31.89 Other specified degenerative diseases of nervous system; R00.0 Tachycardia, unspecified; I12.9 Hypertensive chronic kidney disease with stage 1 through stage 4 chronic kidney disease, or unspecified chronic kidney disease; N18.9 Chronic kidney disease, unspecified; G93.89 Other specified disorders of brain; Z20.822 Contact with and (suspected) exposure to COVID-19; Z91.19 Patient's noncompliance with other medical treatment and regimen; Z79.4 Long term (current) use of insulin; Z79.899 Other long term (current) drug therapy
CPT/HCPCS: 36415; 70551; 71045; 80048; 80053; 80061; 80076; 80305; 81003; 82010; 82550; 82553; 82607; 82962; 83036; 83605; 83735; 84145; 84439; 84443; 84484; 85025; 85379; 86140; 86592; 86593; 86780; 87426; 93005; 93970; 95816; 96374; 97116; 97162; 97535; 99285; J0696; J1650; J1815; J3490; J7030; J7060